=== PATIENT | female | born 1935 | race Hispanic/Latino ===

== ENCOUNTER 2016-10-12 17:40 | Inpatient (IN) | payer MEDICARE ==
[2016-10-12] MEDS ORDERED: TYLENOL ONE (17:56)
[2016-10-12] MEDS ORDERED: TYLENOL PO ONE (18:01)
--- NOTE | 2016-10-12 19:26 | Emergency Department Report ---
Chief Complaint: Fever Stated Complaint: BLOOD TRANSFUSION - HPI History of Present Illness: 81-year-old female past medical history multiple medical problems presents with complaint of fever or chills, sent by PMD for low H&H from office. Patient awake alert and oriented 3 accompanied by son. Slightly pale appearance denies any rectal bleeding or vaginal bleeding or urinary bleeding. Denies any chest pain, only complaining of generalized weakness. Patient states she was recently on antibiotics for bronchitis. - ROS Review of Systems: Recently on antibiotics for bronchitis - Exam Vital Signs: Vital Signs 10/12/16 17:47 Temperature 103 F H Pulse Rate 99 H Respiratory 16 Rate Blood Pressure 108/47 O2 Sat by Pulse 97 Oximetry Physical Exam: Patient is pale appearance, heart S1-S2 lungs clear to auscultation patient slightly tachycardic on exam MSE screening note: Focused history and physical exam performed. Due to findings the following was ordered: Screening Assessment/Plan/Differential Dx: Fever, SIRS, symptomatic anemia 1- This initial assessment/diagnostic orders/clinical plan/ treatment(s) is/are subject to change based on pt's health status, clinical progression and re- assessment by fellow clinical providers in the ED. Further treatment and workup at subsequent clinical provers discretion. Patient/guardians urged not to elope from ED as their condition may be serious if not clinically assessed and managed. 2-sepsis and anemia labs, chest x-ray, EKG shows tachycardia, febrile to 103 will give Tylenol ED Disposition for MSE Condition: Stable
[2016-10-12 19:39] LABS: Basophils % (Auto) 1.1 % (0.0-1.8); Eosinophils % (Auto) 1.5 % (0.0-4.3); Mean Corpuscular HGB Conc 30 % (30-34); Platelet Count 341 K/mm3 (140-440); Red Blood Count 2.41 M/mm3 (3.65-5.03); Red Cell Distribution Width 18.7 % (13.2-15.2); White Blood Count 6.1 K/mm3 (4.5-11.0)
[2016-10-12 19:43] LABS: Mean Corpuscular Hemoglobin 19 pg (28-32); Mean Corpuscular Volume 62 fl (79-97)
[2016-10-12 19:45] LABS: Hemoglobin 4.4 gm/dl (10.1-14.3)
[2016-10-12 19:46] LABS: Hematocrit 14.9 % (30.3-42.9)
[2016-10-12 19:52] LABS: INR 1.06 (0.87-1.13)
[2016-10-12 20:05] LABS: Alanine Aminotransferase 15 units/L (7-56); Albumin 3.2 g/dL (3.9-5); Albumin/Globulin Ratio 1.2 %; Alkaline Phosphatase 77 units/L (35-129); Anion Gap 18 mmol/L; BUN/Creatinine Ratio 21.42; Bilirubin,Total 0.3 mg/dL (0.1-1.2); Blood Urea Nitrogen 15 mg/dL (7-17); Calcium 7.5 mg/dL (8.4-10.2); Carbon Dioxide 22 mmol/L (22-30); Chloride 92.3 mmol/L (98-107); Glucose 115 mg/dL (65-100); Potassium 4.1 mmol/L (3.6-5.0); Sodium 128 mmol/L (137-145); Total Protein 5.8 g/dL (6.3-8.2)
[2016-10-12 20:11] LABS: Bilirubin,Direct < 0.2 mg/dL (0-0.2); Bilirubin,Indirect 0.1 mg/dL
[2016-10-12] MEDS ORDERED: NACL 0.9% 500 ML 500 ML IV ONE (20:54)
--- NOTE | 2016-10-12 21:05 | Emergency Department Report ---
HPI - General Chief Complaint: Fever Time Seen by Provider: 10/12/16 20:53 - HPI HPI: This is a 81-year-old female who presents to the emergency department from home after being sent in by her primary care doctor, Dr. Moraes/Patrice, secondary to low hemoglobin. Patient has been dealing with 2-3 weeks of what they believed to be bronchitis versus pneumonia. Patient is just now starting her second course of antibiotics. She has been dealing with some shortness of breath, cough, wheezing and fevers. Patient has a MAXIMUM TEMPERATURE today of 100.3 Fahrenheit. She denies any history of GI bleeding and has not noticed any bleeding per rectum or any hematuria recently. Patient did have a fall last week secondary to some generalized weakness. No recent travel or sick contacts at home. She has a history of hypertension, [place], high cholesterol. ED Past Medical Hx - Past Medical History Hx Hypertension: Yes Hx Heart Attack/AMI: Yes (STEMI (12/10/15)) Hx GERD: Yes Hx Arthritis: Yes Hx HIV: No - Surgical History Hx Coronary Stent: Yes - Social History Smoking Status: Never Smoker - Medications Home Medications: Home Medications Medication Instructions Recorded Confirmed Last Taken Type Calcium Carbonate/Vitamin D3 1 each PO BID 12/10/15 04/14/16 04/14/16 09:00 History [Calcium 600-Vit D3 400 Caplet] Cetirizine HCl [ZyrTEC] 10 mg PO PRN 12/10/15 04/14/16 04/14/16 22:08 History HYDROcodone/ACETAMINOPHEN 1 tab PO Q4H PRN 12/10/15 04/14/16 04/13/16 09:00 History [Hydrocodon-Acetaminophen 5-325] Levothyroxine [Synthroid] 100 mcg PO QAM 12/10/15 04/14/16 04/14/16 09:00 History Multivitamin Tab W-MINERAL 1 each PO QD 12/10/15 04/14/16 04/14/16 09:00 History [Multiple Vitamin/Mineral (Theragran M)] [place]-3S/Dha/Epa/Fish Oil [Fish 1 each PO DAILY 12/10/15 04/14/16 04/14/16 09: 00 History Oil 1,200 mg Softgel] AtorvaSTATin [Lipitor] 80 mg PO QHS #30 tablet 12/11/15 04/14/1616 09:00 Rx Carvedilol [Coreg] 3.125 mg PO BID #60 tablet 12/11/15 04/14/16 04/14/16 09:00 Rx Clopidogrel [Plavix] 75 mg PO QDAY #30 tablet 12/11/15 04/14/16 04/14/16 Rx Losartan [Cozaar] 25 mg PO QDAY #30 tablet 12/11/15 04/14/16 04/14/16 09:00 Rx Nitroglycerin [Nitrostat] 0.4 mg SL .Q5MIN PRN #100 tablet 12/11/15 04/14/16 09:00 Rx Aspirin [Aspirin BABY CHEW TAB] 81 mg PO QDAY 04/14/16 04/14/16 04/14/16 09:00 History Magnesium Oxide [Magnesium] 500 mg PO DAILY 04/14/16 04/14/16 04/14/16 09:00 History ISOSORBIDE MONOnitrate [Imdur ER] 30 mg PO QDAY #30 tablet 04/15/16 Unknown Rx Nitrofurantoin [place]/M-Cryst 100 mg PO Q12HR #6 capsule 04/15/16 Unknown Rx [Macrobid CAP] ED Review of Systems ROS: Stated complaint: BLOOD TRANSFUSION Other details as noted in HPI Comment: All other systems reviewed and negative Constitutional: fever, weakness Eyes: denies: eye pain, eye discharge, vision change ENT: denies: ear pain, throat pain Respiratory: cough, shortness of breath, wheezing Cardiovascular: denies: chest pain, palpitations Gastrointestinal: denies: abdominal pain, nausea, diarrhea Genitourinary: denies: urgency, dysuria, discharge Musculoskeletal: denies: joint swelling, arthralgia Skin: denies: rash, lesions Neurological: denies: headache, numbness Physical Exam - Physical Exam Vital Signs: Vital Signs 10/12/16 17:47 Temperature 103 F H Pulse Rate 99 H Respiratory 16 Rate Blood Pressure 108/47 O2 Sat by Pulse 97 Oximetry Physical Exam: GENERAL: The patient is well-developed well-nourished. HEENT: Normocephalic. Atraumatic. Extraocular motions are intact. Patient has moist mucous membranes. Pupils equal reactive to light bilaterally. Patient has pelvic and time. NECK: Supple. Trachea is midline. CHEST/LUNGS: Slightly coarse breath sounds at the chest. No tachypnea or accessory muscle use. No cough heard during examination. There is no respiratory distress noted. HEART/CARDIOVASCULAR: Regular. There is no tachycardia. There is no gallop rub or murmur. ABDOMEN: Abdomen is soft, nontender. Patient has normal bowel sounds. There is no abdominal distention. SKIN: Skin is hot but dry. Pale. NEURO: The patient is awake, alert, and oriented. The patient is cooperative. The patient has no focal neurologic deficits. The patient has normal speech. MUSCULOSKELETAL: There is no tenderness or deformity. There is no limitation range of motion. There is no evidence of acute injury. RECTAL: No lesions seen. No gross blood. Negative stool for guaiac ED Course Vital Signs 10/12/16 17:47 Temperature 103 F H Pulse Rate 99 H Respiratory 16 Rate Blood Pressure 108/47 O2 Sat by Pulse 97 Oximetry ED Medical Decision Making - Lab Data Result diagrams: 10/12/16 19:17 10/12/16 19:17 - EKG Data -: EKG Interpreted by Me EKG shows normal: sinus rhythm, axis, intervals, QRS complexes (Low voltage QRS) , ST-T waves Rate: normal - EKG Data When compared to previous EKG there are: previous EKG unavailable Interpretation: normal EKG - Radiology Data Radiology results: image reviewed interpreted by me: Chest x-ray did not show any acute process. Heart is normal shape and size. No effusions. No pneumothorax. No signs of pneumonia seen. - Medical Decision Making 81-year-old female sent in by PCP for low hemoglobin found on labs as they are working up her bronchitis versus pneumonia. Patient does have hemoglobin of 4.4 here. 4 units packed red blood cells ordered for transfusion. No history of GI bleed or significant vaginal bleeding. Negative stool for guaiac on exam and no gross blood seen. Patient does have a fever here of 103 Fahrenheit. No source of infection is seen. Chest x-ray does not show any signs of pneumonia or any other acute process. No urinary tract infection. Some of the patient's symptoms could be secondary to symptomatic anemia. She'll be admitted to hospital for further evaluation and treatment and has been accepted for admission by the hospitalist, Dr. Moya. - Differential Diagnosis symptomatically anemia, bronchitis, pneumonia, GI bleed Critical Care Time: No Critical care attestation.: If time is entered above; I have spent that time in minutes in the direct care of this critically ill patient, excluding procedure time. ED Disposition Clinical Impression: Symptomatic anemia, Bronchitis Disposition: OP ADMITTED IP TO THIS HOSP Is pt being admited?: Yes Does the pt Need Aspirin: No Condition: Stable Time of Disposition: 22:40
--- NOTE | 2016-10-12 21:41 | XRay Report ---
FINAL REPORT EXAM: XR CHEST ROUTINE 2V HISTORY: anemia; SOB TECHNIQUE: PA and lateral chest radiographs PRIORS: Chest radiograph 04/14/2016 FINDINGS: Calcified granuloma is seen in the right upper lobe. There is Port-A-Cath central venous catheter re-identified on the left coursing to the superior vena cava. No focal consolidations are seen in the lungs. No pleural effusion is seen. Heart size is stable. Moderate size hiatal hernia is again noted. IMPRESSION: 1. No definite radiographic evidence of acute cardiopulmonary disease. 2. No focal infiltrate is identified. 3. Hiatal hernia.
--- NOTE | 2016-10-12 21:55 | History and Physical Report ---
History of Present Illness Date of examination: 10/12/16 Date of admission: 10/12/16 Chief complaint: SOB and fatigue History of present illness: This is a 81-year-old female who presents with significant past medical history of coronary artery disease, hypertension, hypothyroidism, osteoporosis and uterine CA status post hysterectomy/radiation last chemotherapy in 2012 who presents to the emergency Department with complaints of fatigue and shortness of breath. Patient has had a recent diagnosis of bronchitis/pneumonia that was being treated as an outpatient by her primary care physician Dr. Ibrahim over the past 2-3 weeks with no significant improvement. Patient reportedly has had 3 visits to the doctor's office with change in antibiotic regimen and follow- up. Patient states that she was called today after blood work revealed severe anemia. Patient was instructed to come to the emergency room. Patient denies any chest pain. No nausea or vomiting. No hematemesis, coffee-ground emesis, hematochezia or melena. Patient reports a history of GERD but no gastric ulcers. Patient reports no recent history of endoscopy. Patient also denies any other source of blood loss such as vaginal bleeding. Patient denies any cough or cold-like symptoms. No fever or chills. Past History Past Medical History: CAD, hypertension, other (osteoporosis, uterine CA) Past Surgical History: No surgical history Social history: no significant social history Family history: no significant family history Medications and Allergies Allergies Allergy/AdvReac Type Severity Reaction Status Date / Time hydrochlorothiazide Allergy Severe Hives Verified 12/10/15 19:21 lisinopril Allergy Severe Hives Verified 12/10/15 19:21 Sulfa (Sulfonamide Allergy Severe TERRIBLE Verified 12/10/15 19:21 Antibiotics) RASH,HIVES ampicillin Allergy Mild RASH Verified 12/10/15 19:21 AROUND MOUTH,SWELLING ciprofloxacin [From Cipro] Allergy Nausea Verified 12/10/15 19:22 ciprofloxacin HCl Allergy Nausea Verified 12/10/15 19:22 [From Cipro] pneumococcal vaccine Allergy Hives Verified 12/10/15 19:22 Home Medications Medication Instructions Recorded Confirmed Last Taken Type Calcium Carbonate/Vitamin D3 1 each PO BID 12/10/15 04/14/16 04/14/16 09:00 History [Calcium 600-Vit D3 400 Caplet] Cetirizine HCl [ZyrTEC] 10 mg PO PRN 12/10/15 04/14/16 04/14/16 22:08 History HYDROcodone/ACETAMINOPHEN 1 tab PO Q4H PRN 12/10/15 04/14/16 04/13/16 09:00 History [Hydrocodon-Acetaminophen 5-325] Levothyroxine [Synthroid] 100 mcg PO QAM 12/10/15 04/14/16 04/14/16 09:00 History Multivitamin Tab W-MINERAL 1 each PO QD 12/10/15 04/14/16 04/14/16 09:00 History [Multiple Vitamin/Mineral (Theragran M)] [place]-3S/Dha/Epa/Fish Oil [Fish 1 each PO DAILY 12/10/15 04/14/16 04/14/16 09: 00 History Oil 1,200 mg Softgel] AtorvaSTATin [Lipitor] 80 mg PO QHS #30 tablet 12/11/15 04/14/16 04/14/16 09:00 Rx Carvedilol [Coreg] 3.125 mg PO BID #60 tablet 12/11/15 04/14/16 04/14/16 09:00 Rx Clopidogrel [Plavix] 75 mg PO QDAY #30 tablet 12/11/15 04/14/16 04/14/16 Rx Losartan [Cozaar] 25 mg PO QDAY #30 tablet 12/11/15 04/14/16 04/14/16 09:00 Rx Nitroglycerin [Nitrostat] 0.4 mg SL .Q5MIN PRN #100 tablet 12/11/15 04/14/16 09:00 Rx Aspirin [Aspirin BABY CHEW TAB] 81 mg PO QDAY 04/14/16 04/14/16 04/14/16 09:00 History Magnesium Oxide [Magnesium] 500 mg PO DAILY 04/14/16 04/14/16 04/14/16 09:00 History ISOSORBIDE MONOnitrate [Imdur ER] 30 mg PO QDAY #30 tablet 04/15/16 Unknown Rx Nitrofurantoin [place]/M-Cryst 100 mg PO Q12HR #6 capsule 04/15/16 Unknown Rx [Macrobid CAP] Review of Systems All systems: negative Exam - Constitutional Vitals: Temp Pulse Resp BP Pulse Ox 98.9 F 91 H 18 113/39 97 10/12/16 21:43 10/12/16 21:43 10/12/16 21:43 10/12/16 21:43 10/12/16 21:43 General appearance: Present: no acute distress, well-nourished - EENT Eyes: Present: PERRL ENT: hearing intact, clear oral mucosa - Neck Neck: Present: supple, normal ROM - Respiratory Respiratory effort: normal Respiratory: bilateral: CTA - Cardiovascular Heart Sounds: Present: S1 & S2. Absent: rub, click - Extremities Extremities: pulses symmetrical, No edema Peripheral Pulses: within normal limits - Abdominal General gastrointestinal: Present: soft, non-tender, non-distended, normal bowel sounds Female genitourinary: Present: normal - Integumentary Integumentary: Present: clear, warm, dry - Musculoskeletal Musculoskeletal: gait normal, strength equal bilaterally - Psychiatric Psychiatric: appropriate mood/affect, intact judgment & insight - Neurologic Neurologic: CNII-XII intact, moves all extremities Results - Labs CBC & Chem 7: 10/12/16 19:17 10/12/16 19:17 Labs: Laboratory Last Values WBC 6.1 K/mm3 (4.5-11.0) 10/12/16 19:17 RBC 2.41 M/mm3 (3.65-5.03) L 10/12/16 19:17 Hgb 4.4 gm/dl (10.1-14.3) L* 10/12/16 19:17 Hct 14.9 % (30.3-42.9) L* 10/12/16 19:17 MCV 62 fl (79-97) L 10/12/16 19: MCH 19 pg (28-32) L 10/12/16 19:17 MCHC 30 % (30-34) 10/12/16 19:17 RDW 18.7 % (13.2-15.2) H 10/12/16 19:17 Plt Count 341 K/mm3 (140-440) 10/12/16 19:17 Lymph % (Auto) 9.2 % (13.4-35.0) L 10/12/16 19:17 [place] % (Auto) 13.0 % (0.0-7.3) H 10/12/16 19:17 Eos % (Auto) 1.5 % (0.0-4.3) 10/12/16 19: Baso % (Auto) 1.1 % (0.0-1.8) 10/12/16 19:17 Lymph # 0.6 K/mm3 (1.2-5.4) L 10/12/16 19:17 [place] # 0.8 K/mm3 (0.0-0.8) 10/12/16 19:17 Eos # 0.1 K/mm3 (0.0-0.4) 10/12/16 19: Baso # 0.1 K/mm3 (0.0-0.1) 10/12/16 19:17 Seg Neutrophils % 75.2 % (40.0-70.0) H 10/12/16 19: Seg Neutrophils # 4.6 K/mm3 (1.8-7.7) 10/12/16 19: PT 13.7 Sec. (12.2-14.9) 10/12/16 19:17 INR 1.06 (0.87-1.13) 10/12/16 19:17 Sodium 128 mmol/L (137-145) L 10/12/16 19:17 Potassium 4.1 mmol/L (3.6-5.0) 10/12/16 19:17 Chloride 92.3 mmol/L (98-107) L 10/12/16 19:17 Carbon Dioxide 22 mmol/L (22-30) 10/12/16 19:17 Anion Gap 18 mmol/L 10/12/16 19:17 BUN 15 mg/dL (7-17) 10/12/16 19:17 Creatinine 0.7 mg/dL (0.7-1.2) 10/12/16 19:17 Estimated GFR > 60 ml/min 10/12/16 19:17 BUN/Creatinine Ratio 21.42 % 10/12/16 19:17 Glucose 115 mg/dL (65-100) H 10/12/16 19:17 Lactic Acid 2.1 mmol/L (0.7-2.0) H* 10/12/16 21:10 Calcium 7.5 mg/dL (8.4-10.2) L 10/12/16 19:17 Total Bilirubin 0.3 mg/dL (0.1-1.2) 10/12/16 19:17 Direct Bilirubin < 0.2 mg/dL (0-0.2) 10/12/16 19: Indirect Bilirubin 0.1 mg/dL 10/12/16 19: AST 24 units/L (5-40) 10/12/16: ALT 15 units/L (7-56) 10/12/16 19: Alkaline Phosphatase 77 units/L (35-129) 10/12/16 19: Troponin T < 0.010 ng/mL (0.00-0.029) 10/12/16: Total Protein 5.8 g/dL (6.3-8.2) L 10/12/16: Albumin 3.2 g/dL (3.9-5) L 10/12/16: Albumin/Globulin Ratio 1.2 % 10/12/16: Blood Type O POSITIVE 10/12/16: Antibody Screen Negative 10/12/16: Crossmatch See Detail 10/12/16: Assessment and Plan Assessment and plan: 1. Severe anemia. Etiology is unknown at this time. Check iron studies, B12, folate, reticulocyte count, LDH and Hemoccult of stool. Consider GI consultation. Patient will receive 4 units packed red blood cells. 2. Acute bronchitis. We will start antibiotics. 3. Hypertension. Resume antihypertensive medications as needed. 4. History of uterine CA. 5. Hypothyroidism. Check TSH. 6. DVT prophylaxis. Given the severe anemia we'll hold on anticoagulation and treat with SCDs.
[2016-10-12] MEDS ORDERED: MILK OF MAGNESIA PO PRN (22:02)
[2016-10-12] MEDS ORDERED: TYLENOL PO PRN (22:02)
[2016-10-12] MEDS ORDERED: ZOFRAN IV PRN (22:02)
[2016-10-12] MEDS ORDERED: DULCOLAX PR PRN (22:02)
[2016-10-12 22:25] LABS: Bilirubin,Urine Negative (Negative); Blood,Urine Negative (Negative); Ketones,Urine Negative (Negative); Leukocyte Esterase,Urine Negative (Negative); Mucus,Urine Few /HPF; Nitrite,Urine Negative (Negative); Protein,Urine <15 mg/dL mg/dL (Negative); Urobilinogen,Urine < 2.0 mg/dL (<2.0)
[2016-10-13] MEDS ORDERED: NITROSTAT SL PRN (00:49)
[2016-10-13] MEDS ORDERED: VITAMIN D3 PO SCH (00:49)
[2016-10-13] MEDS ORDERED: NON-FORMULARY (Cetirizine Hcl [Zyrtec] 10 MG) PO SCH (00:49)
[2016-10-13] MEDS ORDERED: CALCIUM CARBONATE PO SCH (00:49)
[2016-10-13] MEDS: COREG PO SCH ×3 (02:00→23:26)
--- NOTE | 2016-10-13 02:02 | Admit Criteria Form ---
Admission Criteria Documentation: ANEMIA, IRON DEFICIENCY OR UNSPECIFIED Clinical Indications for Inpatient Care (Place 'X' for any and all applicable criteria): Admission is indicated for ANY ONE of the following(1)(2)(3)(4)(5)(6)(7): [X] I. Inpatient admission required rather than observation care (Also use Anemia, Iron Deficiency or Unspecified: Observation Care guideline as appropriate) because of ANY ONE of the following: [] a) Hemodynamic instability that is severe or persistent [] b) Active bleeding that cannot be rapidly controlled [] c) CVS symptoms (i.e., dyspnea, chest pain, heart failure) that are severe or persistent [] d) Neurologic symptoms (i.e., cognitive impairment, recurrent syncope or near syncope) that are severe or persistent [] e) Cardiac arrhythmias of immediate concern [] f) Acute peripheral ischemia (e.g., pulseless, cool, mottled, or cyanotic extremity) [] g) High-risk low platelet count [] h) Acute renal failure [X] i) Ongoing transfusion for blood loss (greater than 2 units) [] j) IV fluid to replace significant ongoing (eg, >24 hours) losses (> 3 L/m2 per day) [] k) Pulmonary artery catheter monitoring [] l) Supplemental oxygen or respiratory treatments for over 24 hours that are performable only in acute inpatient setting [] m) Immediate inpatient surgery [] n) Other condition, treatment or monitoring requiring inpatient admission [] II Active massive hemorrhage [] III. Active hemolysis with rapidly progressive anemia [A](6) Extended stay beyond goal length of stay may be needed for (17)(18) []a) Diagnosed cause of anemia requiring longer hospitalization (eg, active GI bleeding, immune hemolysis requiring electrophoresis, complications of malignancy requiring acute care []b) Continued emergent anemia indicators (23) []c) Transfusion reactions []d) Associated leukopenia or thrombocytopenia needing inpatient care []e) Active comorbidities (eg, renal failure, heart failure) The original [facility] Care Guidelines content created by [facility] Care Guidelines has been revised. The portions of the content which have been revised are identified through the use of italic text or in bold. [facility] Guidelines has neither reviewed nor approved the modified material. All other unmodified content is copyright [facility] Care Guidelines. Please see references footnoted in the original [facility] edition 2016 Admission Criteria Met: Yes
[2016-10-13] MEDS ORDERED: NACL 0.9% 500 ML 500 ML ONE (03:33)
[2016-10-13] MEDS: SYNTHROID PO SCH (05:41)
[2016-10-13] MEDS: IMDUR PO SCH (09:33)
[2016-10-13] MEDS: OYSCO D 500 MG-200 UNIT PO SCH ×2 (09:34→23:26)
[2016-10-13] MEDS: FISH OIL PO SCH (09:34)
[2016-10-13] MEDS: CLARITIN PO SCH (09:35)
[2016-10-13] MEDS: COZAAR PO SCH (09:35)
[2016-10-13] MEDS: MAG-OX PO SCH (09:35)
[2016-10-13] MEDS: THERAGRAN-M Tab PO SCH (09:38)
[2016-10-13] MEDS ORDERED: EPA PO SCH (10:00)
[2016-10-13] MEDS ORDERED: FISH OIL PO SCH (10:00)
[2016-10-13] MEDS ORDERED: DHA PO SCH (10:00)
[2016-10-13] MEDS ORDERED: OMEGA PO SCH (10:00)
[2016-10-13] MEDS ORDERED: MAGNESIUM OXIDE 500 MG PO SCH (10:00)
[2016-10-13] MEDS ORDERED: LASIX IV ONE (11:00)
--- NOTE | 2016-10-13 11:38 | Progress Note ---
Assessment and Plan Assessment and plan: --Severe anemia with heme-positive stools Deceiving blood transfusion closely monitor H&H and transfuse additional PRBC as needed IV Lasix after finishing transfusion GI consultation, discussed with on-call faculty i on call medical assistant --Acute bronchitis/acute exacerbation of COPD Oxygen titrated to O2 sats more than 90%, IV antibiotics, nebulizers, IV steroids Inhalation steroids, we will consider pulmonary evaluation if needed --Hypertension moderate control Continue current antihypertensives and when necessary hydralazine --Hypothyroidism continue Synthroid -- DVT prophylaxis. No pharmacologic anticoagulation in view of anemia managed with SCDs --History of of uterine cancer stable --Full CODE STATUS Closely monitor the patient adjust management as needed Follow GI evaluation and recommendations Plan of care discussed with the patient family member as well as case management History Interval history: Patient seen and evaluated medical records reviewed admitted with severe anemia and heme-positive stool Receiving blood transfusion Patient complains of mild shortness of breath Denies chest pain, no evidence of active bleeding Vital signs reviewed Hospitalist Physical - Constitutional Vitals: Temp Pulse Resp BP Pulse Ox 99 F 77 18 119/57 98 10/13/16 10:48 10/13/16 10:48 10/13/16 10:48 10/13/16 10:48 10/13/16 10:48 General appearance: Present: no acute distress, well-nourished - EENT Eyes: Present: PERRL, EOM intact - Neck Neck: Present: supple, normal ROM - Respiratory Respiratory effort: normal Respiratory: bilateral: diminished, negative: rales, rhonchi, wheezing - Cardiovascular Rhythm: regular Heart Sounds: Present: S1 & S2 - Extremities Extremities: no ischemia, pulses intact, pulses symmetrical Peripheral Pulses: within normal limits - Abdominal General gastrointestinal: soft, non-tender, non-distended, normal bowel sounds - Integumentary Integumentary: Present: clear, warm - Psychiatric Psychiatric: appropriate mood/affect, cooperative - Neurologic Neurologic: CNII-XII intact, moves all extremities Results - Labs CBC & Chem 7: 10/13/16 13:43 10/13/16 13:43 Labs: Laboratory Last Values WBC 6.1 K/mm3 (4.5-11.0) 10/12/16 19:17 RBC 2.41 M/mm3 (3.65-5.03) L 10/12/16 19:17 Hgb 4.4 gm/dl (10.1-14.3) L* 10/12/16 19:17 Hct 14.9 % (30.3-42.9) L* 10/12/16 19: MCV 62 fl (79-97) L 10/12/16 19:17 MCH 19 pg (28-32) L 10/12/16 19:17 MCHC 30 % (30-34) 10/12/16 19:17 RDW 18.7 % (13.2-15.2) H 10/12/16 19:17 Plt Count 341 K/mm3 (140-440) 10/12/16 19:17 Lymph % (Auto) 9.2 % (13.4-35.0) L 10/12/16 19:17 [place] % (Auto) 13.0 % (0.0-7.3) H 10/12/16 19:17 Eos % (Auto) 1.5 % (0.0-4.3) 10/12/16 19:17 Baso % (Auto) 1.1 % (0.0-1.8) 10/12/16 19:17 Lymph # 0.6 K/mm3 (1.2-5.4) L 10/12/16 19: [place] # 0.8 K/mm3 (0.0-0.8) 10/12/16 19: Eos # 0.1 K/mm3 (0.0-0.4) 10/12/16 19: Baso # 0.1 K/mm3 (0.0-0.1) 10/12/16 19: Seg Neutrophils % 75.2 % (40.0-70.0) H 10/12/16 19: Seg Neutrophils # 4.6 K/mm3 (1.8-7.7) 10/12/16 19: PT 13.7 Sec. (12.2-14.9) 10/12/16: INR 1.06 (0.87-1.13) 10/12/16 19:17 Sodium 128 mmol/L (137-145) L 10/12/16 19:17 Potassium 4.1 mmol/L (3.6-5.0) 10/12/16 19: Chloride 92.3 mmol/L (98-107) L 10/12/16 19:17 Carbon Dioxide 22 mmol/L (22-30) 10/12/16 19:17 Anion Gap 18 mmol/L 10/12/16 19:17 BUN 15 mg/dL (7-17) 10/12/16 19:17 Creatinine 0.7 mg/dL (0.7-1.2) 10/12/16 19:17 Estimated GFR > 60 ml/min 10/12/16 19:17 BUN/Creatinine Ratio 21.42 % 10/12/16 19:17 Glucose 115 mg/dL (65-100) H 10/12/16 19:17 Lactic Acid 2.1 mmol/L (0.7-2.0) H* 10/12/16 21:10 Calcium 7.5 mg/dL (8.4-10.2) L 10/12/16 19:17 Total Bilirubin 0.3 mg/dL (0.1-1.2) 10/12/16 19:17 Direct Bilirubin < 0.2 mg/dL (0-0.2) 10/12/16 19:17 Indirect Bilirubin 0.1 mg/dL 10/12/16 19:17 AST 24 units/L (5-40) 10/12/16 19:17 ALT 15 units/L (7-56) 10/12/16 19:17 Alkaline Phosphatase 77 units/L (35-129) 10/12/16 19:17 Troponin T < 0.010 ng/mL (0.00-0.029) 10/12/16 19:17 Total Protein 5.8 g/dL (6.3-8.2) L 10/12/16 19:17 Albumin 3.2 g/dL (3.9-5) L 10/12/16 19:17 Albumin/Globulin Ratio 1.2 % 10/12/16 19:17 Urine Color Yellow (Yellow) 10/12/16 21:40 Urine Turbidity Clear (Clear) 10/12/16 21:40 Urine pH 6.0 (5.0-7.0) 10/12/16 21:40 Ur Specific [place] 1.010 (1.003-1.030) 10/12/16 21:40 Urine Protein <15 mg/dl mg/dL (Negative) 10/12/16 21:40 Urine Glucose (UA) Negative mg/dL (Negative) 10/12/16 21:40 Urine Ketones Negative mg/dL (Negative) 10/12/16 21:40 Urine Blood Negative (Negative) 10/12/16 21:40 Urine Nitrite Negative (Negative) 10/12/16 21:40 Urine Bilirubin Negative (Negative) 10/12/16 21:40 Urine Urobilinogen < 2.0 mg/dL (<2.0) 10/12/16 21:40 Ur Leukocyte Esterase Negative (Negative) 10/12/16 21:40 Urine WBC (Auto) 2.0 /HPF (0.0-6.0) 10/12/16 21:40 Urine RBC (Auto) 3.0 /HPF (0.0-6.0) 10/12/16 21:40 Urine Mucus Few /HPF 10/12/16 21:40 Blood Type O POSITIVE 10/12/16 19:25 Antibody Screen Negative 10/12/16 19:25 Crossmatch See Detail 10/12/16 19:25
[2016-10-13] MEDS ORDERED: PROVENTIL IH PRN ×2 (11:40→11:52)
[2016-10-13] MEDS: DUONEB 0.5 MG-3 MG/3 ML SOLN IH SCH ×3 (13:38→19:16)
[2016-10-13 14:02] LABS: Hematocrit 27.8 % (30.3-42.9); Mean Corpuscular HGB Conc 32 % (30-34); Mean Corpuscular Volume 74 fl (79-97); Platelet Count 278 K/mm3 (140-440); Red Blood Count 3.76 M/mm3 (3.65-5.03); White Blood Count 4.8 K/mm3 (4.5-11.0)
[2016-10-13 14:04] LABS: Mean Corpuscular Hemoglobin 24 pg (28-32); Red Cell Distribution Width 27.3 % (13.2-15.2)
[2016-10-13 14:14] LABS: Anion Gap 17 mmol/L; Blood Urea Nitrogen 14 mg/dL (7-17); Calcium 7.5 mg/dL (8.4-10.2); Carbon Dioxide 26 mmol/L (22-30); Chloride 93.7 mmol/L (98-107); Glucose 134 mg/dL (65-100); Potassium 3.3 mmol/L (3.6-5.0); Sodium 133 mmol/L (137-145)
[2016-10-13 14:59] LABS: Basophils % (Manual) 0 % (0.0-1.8); Blastocytes % (Manual) 0 %
[2016-10-13 15:00] LABS: Anisocytosis 3+; Hypochromasia 1+; Microcytosis 1+; Poikilocytosis 1+
[2016-10-13 15:01] LABS: Diff Status Complete
[2016-10-13] MEDS: PEPCID PO SCH (23:25)
[2016-10-14] MEDS: SYNTHROID PO SCH (05:56)
[2016-10-14 06:13] LABS: Hematocrit 28.7 % (30.3-42.9); Hemoglobin 9.2 gm/dl (10.1-14.3); Mean Corpuscular HGB Conc 32 % (30-34); Mean Corpuscular Volume 74 fl (79-97); Platelet Count 291 K/mm3 (140-440); Red Blood Count 3.87 M/mm3 (3.65-5.03); White Blood Count 4.9 K/mm3 (4.5-11.0)
[2016-10-14 06:14] LABS: Anion Gap 15 mmol/L; Blood Urea Nitrogen 11 mg/dL (7-17); Calcium 8.1 mg/dL (8.4-10.2); Carbon Dioxide 27 mmol/L (22-30); Chloride 97.1 mmol/L (98-107); Glucose 146 mg/dL (65-100); Potassium 4.4 mmol/L (3.6-5.0); Sodium 135 mmol/L (137-145)
[2016-10-14 06:34] LABS: Mean Corpuscular Hemoglobin 24 pg (28-32); Red Cell Distribution Width 27.5 % (13.2-15.2)
[2016-10-14 07:50] LABS: Basophils % (Manual) 0 % (0.0-1.8); Blastocytes % (Manual) 0 %; Eosinophils % (Manual) 0 % (0.0-4.3)
[2016-10-14 07:51] LABS: Anisocytosis 2+; Hypochromasia 1+; Tear Drop Cells Few
[2016-10-14 07:54] LABS: Elliptocytes Few; Ovalocytes 1+; Target Cells Few
[2016-10-14 07:55] LABS: Diff Status Complete; Platelet Estimate Consistent w Auto
[2016-10-14] MEDS: DUONEB 0.5 MG-3 MG/3 ML SOLN IH SCH ×4 (08:05→20:14)
[2016-10-14] MEDS ORDERED: LASIX IV ONE (09:30)
[2016-10-14] MEDS ORDERED: ZITHROMAX PO ONE (11:00)
[2016-10-14] MEDS: COZAAR PO SCH (11:12)
[2016-10-14] MEDS: COREG PO SCH ×2 (11:13→21:56)
[2016-10-14] MEDS: IMDUR PO SCH (11:26)
[2016-10-14] MEDS: MAG-OX PO SCH (13:18)
[2016-10-14] MEDS: PEPCID PO SCH ×2 (13:19→21:56)
[2016-10-14] MEDS: CLARITIN PO SCH (13:22)
[2016-10-14] MEDS: THERAGRAN-M Tab PO SCH (13:22)
[2016-10-14] MEDS: OYSCO D 500 MG-200 UNIT PO SCH ×2 (13:39→21:56)
[2016-10-14] MEDS: FISH OIL PO SCH (13:39)
--- NOTE | 2016-10-14 18:32 | Progress Note ---
Assessment and Plan Assessment and plan: --Acute bronchitis; chest congestion Probably secondary to fluid overload as well as acute exacerbation of COPD Continue oxygen and nebulizers IV steroids IV antibiotics IV Lasix Input-output monitoring --Severe anemia with heme-positive stools Deceiving blood transfusion closely monitor H&H and transfuse additional PRBC as needed IV Lasix after finishing transfusion GI consultation, discussed with on-call supervisor winter --Hypertension moderate control Continue current antihypertensives and when necessary hydralazine --Hypothyroidism continue Synthroid -- DVT prophylaxis. No pharmacologic anticoagulation in view of anemia managed with SCDs --History of of uterine cancer stable --Full CODE STATUS Closely monitor the patient adjust management as needed Follow GI evaluation and recommendations Plan of care discussed with the patient family member as well as case management History Interval history: Patient seen and evaluated medical records reviewed Patient complains of mild shortness of breath and chest congestion Received 4 units of PRBC yesterday probably secondary to fluid overload Also complains of mild cough Hemoglobin levels significantly improved Denies any headache dizziness Denies any chest pain or palpitations Hospitalist Physical - Constitutional Vitals: Temp Pulse Resp BP Pulse Ox 98.4 F 96 H 20 115/54 97 10/14/16 16:00 10/14/16 16:00 10/14/16 16:00 10/14/16 16:00 10/14/16 12:00 General appearance: Present: no acute distress, well-nourished - EENT Eyes: Present: PERRL, EOM intact - Neck Neck: Present: supple, normal ROM - Respiratory Respiratory effort: normal Respiratory: bilateral: diminished, negative: rales, rhonchi, wheezing - Cardiovascular Rhythm: regular Heart Sounds: Present: S1 & S2 - Extremities Extremities: no ischemia, pulses intact, pulses symmetrical Peripheral Pulses: within normal limits - Abdominal General gastrointestinal: soft, non-tender, non-distended, normal bowel sounds - Integumentary Integumentary: Present: clear, warm - Psychiatric Psychiatric: appropriate mood/affect, cooperative - Neurologic Neurologic: CNII-XII intact, moves all extremities Results - Labs CBC & Chem 7: 10/14/16 05:31 10/14/16 05:31 Labs: Laboratory Last Values WBC 4.9 K/mm3 (4.5-11.0) 10/14/16 05:31 RBC 3.87 M/mm3 (3.65-5.03) 10/14/16 05:31 Hgb 9.2 gm/dl (10.1-14.3) L 10/14/16 05:31 Hct 28.7 % (30.3-42.9) L 10/14/16 05:31 MCV 74 fl (79-97) L 10/14/16 05:31 MCH 24 pg (28-32) L 10/14/16 05:31 MCHC 32 % (30-34) 10/14/16 05:31 RDW 27.5 % (13.2-15.2) H 10/14/16 05:31 Plt Count 291 K/mm3 (140-440) 10/14/16 05:31 Lymph % (Auto) 9.2 % (13.4-35.0) L 10/12/16 19:17 [place] % (Auto) [employer] 10/13/16 13:43 Eos % (Auto) 1.5 % (0.0-4.3) 10/12/16 19:17 Baso % (Auto) 1.1 % (0.0-1.8) 10/12/16 19:17 Lymph # 0.6 K/mm3 (1.2-5.4) L 10/12/16 19:17 [place] # 0.8 K/mm3 (0.0-0.8) 10/12/16 19:17 Eos # 0.1 K/mm3 (0.0-0.4) 10/12/16 19:17 Baso # 0.1 K/mm3 (0.0-0.1) 10/12/16 19:17 Add Manual Diff Complete 10/14/16 05:31 Total Counted 100 10/14/16 05:31 Seg Neutrophils % 75.2 % (40.0-70.0) H 10/12/16 19:17 Seg Neuts % (Manual) 92.0 % (40.0-70.0) H 10/14/16 05:31 Band Neutrophils % 0 % 10/14/16 05:31 Lymphocytes % (Manual) 4.0 % (13.4-35.0) L 10/14/16 05:31 Reactive Lymphs % (Man) 0 % 10/14/16 05:31 Monocytes % (Manual) 3.0 % (0.0-7.3) 10/14/16 05:31 Eosinophils % (Manual) 0 % (0.0-4.3) 10/14/16 05:31 Basophils % (Manual) 0 % (0.0-1.8) 10/14/16 05:31 Metamyelocytes % 1.0 % 10/14/16 05:31 Myelocytes % 0 % 10/14/16 05:31 Promyelocytes % 0 % 10/14/16 05:31 Blast Cells % 0 % 10/14/16 05:31 Nucleated RBC % Not Reportable 10/14/16 05:31 Seg Neutrophils # 4.6 K/mm3 (1.8-7.7) 10/12/16 19:17 Seg Neutrophils # Man 4.5 K/mm3 (1.8-7.7) 10/14/16 05:31 Band Neutrophils # 0.0 K/mm3 10/14/16 05:31 Lymphocytes # (Manual) 0.2 K/mm3 (1.2-5.4) L 10/14/16 05:31 Abs React Lymphs (Man) 0.0 K/mm3 10/14/16 05:31 Monocytes # (Manual) 0.1 K/mm3 (0.0-0.8) 10/14/16 05:31 Eosinophils # (Manual) 0.0 K/mm3 (0.0-0.4) 10/14/16 05:31 Basophils # (Manual) 0.0 K/mm3 (0.0-0.1) 10/14/16 05:31 Metamyelocytes # 0.0 K/mm3 10/14/16 05:31 Myelocytes # 0.0 K/mm3 10/14/16 05:31 Promyelocytes # 0.0 K/mm3 10/14/16 05:31 Blast Cells # 0.0 K/mm3 10/14/16 05:31 WBC Morphology Not Reportable 10/14/16 05:31 Hypersegmented Neuts Not Reportable 10/14/16 05:31 Hyposegmented Neuts Not Reportable 10/14/16 05:31 Hypogranular Neuts Not Reportable 10/14/16 05:31 Smudge Cells Not Reportable 10/14/16 05:31 Toxic Granulation Not Reportable 10/14/16 05:31 Toxic Vacuolation Not Reportable 10/14/16 05:31 Dohle Bodies Not Reportable 10/14/16 05:31 Pelger-Huet Anomaly Not Reportable 10/14/16 05:31 J Carlos Rods Not Reportable 10/14/16 05:31 Platelet Estimate Consistent w auto 10/14/16 05:31 Clumped Platelets Not Reportable 10/14/16 05:31 Plt Clumps, EDTA Not Reportable 10/14/16 05:31 Large Platelets Not Reportable 10/14/16 05:31 Giant Platelets Not Reportable 10/14/16 05:31 Platelet Satelliting Not Reportable 10/14/16 05:31 Plt Morphology Comment Not Reportable 10/14/16 05:31 RBC Morphology Not Reportable 10/14/16 05:31 Dimorphic RBCs Not Reportable 10/14/16 05:31 Polychromasia Not Reportable 10/14/16 05:31 Hypochromasia 1+ 10/14/16 05:31 Poikilocytosis Not Reportable 10/14/16 05:31 Anisocytosis 2+ 10/14/16 05:31 Microcytosis Not Reportable 10/14/16 05:31 Macrocytosis Not Reportable 10/14/16 05:31 Spherocytes Not Reportable 10/14/16 05:31 Pappenheimer Bodies Not Reportable 10/14/16 05:31 Sickle Cells Not Reportable 10/14/16 05:31 Target Cells Few 10/14/16 05:31 Tear Drop Cells Few 10/14/16 05:31 Ovalocytes 1+ 10/14/16 05:31 Helmet Cells Not Reportable 10/14/16 05:31 Avila-[place] Bodies Not Reportable 10/14/16 05:31 [place] Rings Not Reportable 10/14/16 05:31 Bj Cells Not Reportable 10/14/16 05:31 Bite Cells Not Reportable 10/14/16 05:31 Crenated Cell Not Reportable 10/14/16 05:31 Elliptocytes Few 10/14/16 05:31 Acanthocytes (Spur) Not Reportable 10/14/16 05:31 Rouleaux Not Reportable 10/14/16 05:31 Hemoglobin C Crystals Not Reportable 10/14/16 05:31 Schistocytes Not Reportable 10/14/16 05:31 Malaria parasites Not Reportable 10/14/16 05:31 Connor Bodies Not Reportable 10/14/16 05:31 Hem Pathologist Commnt No 10/14/16 05:31 PT 13.7 Sec. (12.2-14.9) 10/12/16 19:17 INR 1.06 (0.87-1.13) 10/12/16 19:17 Sodium 135 mmol/L (137-145) L 10/14/16 05:31 Potassium 4.4 mmol/L (3.6-5.0) D 10/14/16 05:31 Chloride 97.1 mmol/L (98-107) L 10/14/16 05:31 Carbon Dioxide 27 mmol/L (22-30) 10/14/16 05:31 Anion Gap 15 mmol/L 10/14/16 05:31 BUN 11 mg/dL (7-17) 10/14/16 05:31 Creatinine 0.5 mg/dL (0.7-1.2) L 10/14/16 05:31 Estimated GFR > 60 ml/min 10/14/16 05:31 BUN/Creatinine Ratio 22.00 % 10/14/16 05:31 Glucose 146 mg/dL (65-100) H 10/14/16 05:31 Lactic Acid 2.1 mmol/L (0.7-2.0) H* 10/12/16 21:10 Calcium 8.1 mg/dL (8.4-10.2) L 10/14/16 05:31 Total Bilirubin 0.3 mg/dL (0.1-1.2) 10/12/16 19:17 Direct Bilirubin < 0.2 mg/dL (0-0.2) 10/12/16 19:17 Indirect Bilirubin 0.1 mg/dL 10/12/16 19:17 AST 24 units/L (5-40) 10/12/16 19:17 ALT 15 units/L (7-56) 10/12/16 19:17 Alkaline Phosphatase 77 units/L (35-129) 10/12/16 19:17 Troponin T < 0.010 ng/mL (0.00-0.029) 10/12/16 19:17 Total Protein 5.8 g/dL (6.3-8.2) L 10/12/16 19:17 Albumin 3.2 g/dL (3.9-5) L 10/12/16 19: Albumin/Globulin Ratio 1.2 % 10/12/16 19:17 Urine Color Yellow (Yellow) 10/12/16 21:40 Urine Turbidity Clear (Clear) 10/12/16 21:40 Urine pH 6.0 (5.0-7.0) 10/12/16 21:40 Ur Specific [place] 1.010 (1.003-1.030) 10/12/16 21:40 Urine Protein <15 mg/dl mg/dL (Negative) 10/12/16 21:40 Urine Glucose (UA) Negative mg/dL (Negative) 10/12/16 21:40 Urine Ketones Negative mg/dL (Negative) 10/12/16 21:40 Urine Blood Negative (Negative) 10/12/16 21:40 Urine Nitrite Negative (Negative) 10/12/16 21:40 Urine Bilirubin Negative (Negative) 10/12/16 21:40 Urine Urobilinogen < 2.0 mg/dL (<2.0) 10/12/16 21:40 Ur Leukocyte Esterase Negative (Negative) 10/12/16 21:40 Urine WBC (Auto) 2.0 /HPF (0.0-6.0) 10/12/16 21:40 Urine RBC (Auto) 3.0 /HPF (0.0-6.0) 10/12/16 21:40 Urine Mucus Few /HPF 10/12/16 21:40 Blood Type O POSITIVE 10/12/16 19:25 Antibody Screen Negative 10/12/16 19:25 Crossmatch See Detail 10/12/16 19:25
[2016-10-14] MEDS: LASIX IV SCH (22:05)
[2016-10-14] MEDS ORDERED: PEPCID PO ONE (23:00)
[2016-10-15 05:51] LABS: Hematocrit 29.3 % (30.3-42.9); Hemoglobin 9.2 gm/dl (10.1-14.3); Mean Corpuscular HGB Conc 32 % (30-34); Mean Corpuscular Volume 74 fl (79-97); Platelet Count 324 K/mm3 (140-440); Red Blood Count 3.94 M/mm3 (3.65-5.03); White Blood Count 12.2 K/mm3 (4.5-11.0)
[2016-10-15 06:03] LABS: Mean Corpuscular Hemoglobin 23 pg (28-32); Red Cell Distribution Width 27.9 % (13.2-15.2)
[2016-10-15 06:08] LABS: BUN/Creatinine Ratio 28.33; Blood Urea Nitrogen 17 mg/dL (7-17); Calcium 8.1 mg/dL (8.4-10.2); Carbon Dioxide 27 mmol/L (22-30); Chloride 93.8 mmol/L (98-107); Glucose 168 mg/dL (65-100); Potassium 3.8 mmol/L (3.6-5.0); Sodium 136 mmol/L (137-145)
[2016-10-15 06:13] LABS: Anion Gap 19 mmol/L
[2016-10-15] MEDS: SYNTHROID PO SCH (06:27)
[2016-10-15 07:44] VITALS: BP 169/71
[2016-10-15 07:44] LABS: Basophils % (Manual) 0 % (0.0-1.8); Blastocytes % (Manual) 0 %; Eosinophils % (Manual) 0 % (0.0-4.3)
[2016-10-15 07:45] LABS: Anisocytosis 2+
[2016-10-15 07:46] LABS: Elliptocytes Few; Hypochromasia 1+; Ovalocytes 1+; Target Cells Few
[2016-10-15 07:47] LABS: Tear Drop Cells Few
[2016-10-15 07:48] LABS: Diff Status Complete; Platelet Estimate Consistent w Auto
--- NOTE | 2016-10-15 08:43 | Gastroenterology Consultation ---
History of Present Illness - Reason for Consult Consult date: 10/12/16 anemia Requesting physician: FROY SEPULVEDA - History of Present Illness Ms Wheeler is a 81 yo female with h/o endometrial cancer who presents with worsening cough/sob and weakness. Pt found to have severe BRANDO on admission. She denies any signs of overt GI bleeding. She has received transfusions with appropriate response in hct. She has a h/o radiation tx, chemo, and surgery for her prior malignancy. She reports having colonoscopy ~3 years ago that was w/o significant findings. Denies NSAIDs, or family h/o GI malignancies. Past History Past Medical History: CAD, hypertension, other (osteoporosis, uterine CA) Past Surgical History: No surgical history Social history: no significant social history Family history: no significant family history Medications and Allergies Allergies Allergy/AdvReac Type Severity Reaction Status Date / Time hydrochlorothiazide Allergy Severe Hives Verified 12/10/15 19:21 lisinopril Allergy Severe Hives Verified 12/10/15 19:21 Sulfa (Sulfonamide Allergy Severe TERRIBLE Verified 12/10/15 19:21 Antibiotics) RASH,HIVES ampicillin Allergy Mild RASH Verified 12/10/15 19:21 AROUND MOUTH,SWELLING ciprofloxacin [From Cipro] Allergy Nausea Verified 12/10/15 19:22 ciprofloxacin HCl Allergy Nausea Verified 12/10/15 19:22 [From Cipro] pneumococcal vaccine Allergy Hives Verified 12/10/15 19:22 Home Medications Medication Instructions Recorded Confirmed Last Taken Type Aspirin 81 mg PO DAILY 10/12/16 10/12/16 Unknown History AtorvaSTATin [Lipitor] 80 mg PO DAILY 10/12/16 10/12/16 Unknown History Calcium Carbonate [Calcium] 1,200 mg PO DAILY 10/12/16 10/12/16 Unknown History Carvedilol [Coreg] 3.125 mg PO BID 10/12/16 10/12/16 Unknown History Cetirizine HCl [ZyrTEC] 10 mg PO DAILY 10/12/16 10/12/16 Unknown History Clopidogrel [Plavix] 75 mg PO QDAY 10/12/16 10/12/16 Unknown History Duloxetine HCl [Cymbalta] 60 mg PO DAILY 10/12/16 10/12/16 Unknown History Levothyroxine [Synthroid] 100 mcg PO QAM 10/12/16 10/12/16 Unknown History Losartan [Cozaar] 25 mg PO QDAY 10/12/16 10/12/16 Unknown History Magnesium 500 mg PO DAILY 10/12/16 10/12/16 Unknown History Oxycodone HCl/Acetaminophen 1 each PO Q6HR PRN 10/12/16 10/12/16 Unknown History [Percocet 10/325 mg] Active Meds: Active Medications Acetaminophen (Tylenol) 650 mg PO Q4H PRN PRN Reason: Pain MILD(1-3)/Fever >100.5/LITTLEJOHN Last Admin: 10/13/16 09:34 Dose: 650 mg Albuterol (Proventil) 2.5 mg IH Q4HRT PRN PRN Reason: Shortness Of Breath Albuterol/Ipratropium (Duoneb 0.5 Mg-3 Mg/3 Ml Soln) 1 ampul IH QIDRT [facility] Last Admin: 10/14/16 20:14 Dose: 1 ampul Atorvastatin Calcium (Lipitor) 80 mg PO QHS [facility] Last Admin: 10/14/16 21:56 Dose: 80 mg Azithromycin (Zithromax) 250 mg PO QDAY [facility] Bisacodyl (Dulcolax) 10 mg MI QDAY PRN PRN Reason: Constipation unrelieved by MOM Calcium/Vitamin D (Oysco D 500 Mg-200 Unit) 1 each PO BID [facility] Last Admin: 10/14/16 21:56 Dose: 1 each Carvedilol (Coreg) 3.125 mg PO BID [facility] Last Admin: 10/14/16 21:56 Dose: 3.125 mg Famotidine (Pepcid) 10 mg PO BID [facility] Last Admin: 10/14/16 21:56 Dose: 10 mg Fish Oil (Fish Oil) 1,000 mg PO QDAY [facility] Last Admin: 10/14/16 13:39 Dose: 1,000 mg Furosemide (Lasix) 40 mg IV QDAY [facility] Last Admin: 10/14/16 22:05 Dose: Not Given Isosorbide Mononitrate (Imdur) 30 mg PO QDAY [facility] Last Admin: 10/14/16 11:26 Dose: 30 mg Levothyroxine Sodium (Synthroid) 100 mcg PO QAM@0600 [facility] Last Admin: 10/15/16 06:27 Dose: 100 mcg Loratadine (Claritin) 10 mg PO DAILY [facility] Last Admin: 10/14/16 13:22 Dose: 10 mg Losartan Potassium (Cozaar) 25 mg PO QDAY [facility] Last Admin: 10/14/16 11:12 Dose: 25 mg Magnesium Hydroxide (Milk Of Magnesia) 30 ml PO Q4H PRN PRN Reason: Constipation Magnesium Oxide (Mag-Ox) 400 mg PO QDAY [facility] Last Admin: 10/14/16 13:18 Dose: 400 mg Methylprednisolone Sodium Succinate (Solu-Medrol) 40 mg IV Q8HR [facility] Last Admin: 10/15/16 06:27 Dose: 40 mg Multivitamins/Minerals (Theragran-M Tab) 1 each PO QDAY [facility] Last Admin: 10/14/16 13:22 Dose: 1 each Nitroglycerin (Nitrostat) 0.4 mg SL .Q5MIN PRN PRN Reason: Chest Pain Review of Systems - Review of Systems All systems: negative Constitutional: weakness, poor appetite Exam - Exam Narrative Exam: Gen: NAD, elderly appearing female Head: nc/at Eyes: anicteric, perrl Mouth: dry, no oral lesions Lungs: coarse bs, mild labored respirations Abd: soft, nd, +bs CV: RRR Ext: no c/c/e Neuro: oriented x 3, grossly normal Pysch: appropriate mood and affect - Constitutional Vital Signs: Temp Pulse Resp BP Pulse Ox 99.0 F 74 16 169/71 94 10/15/16 07:41 10/15/16 07:41 10/15/16 07:41 10/15/16 07:41 10/15/16 07:41 - Labs CBC & Chem 7: 10/15/16 04:51 10/15/16 04:51 Lab Results: Laboratory Results - last 24 hr 10/15/16 10/15/16 04:51 04:51 WBC 12.2 H RBC 3.94 Hgb 9.2 L Hct 29.3 L MCV 74 L MCH 23 L MCHC 32 RDW 27.9 H Plt Count 324 Add Manual Diff Complete Total Counted 100 Seg Neutrophils % [employer] Seg Neuts % (Manual) 73.0 H Band Neutrophils % 18.0 Lymphocytes % (Manual) 7.0 L Reactive Lymphs % (Man) 0 Monocytes % (Manual) 2.0 Eosinophils % (Manual) 0 Basophils % (Manual) 0 Metamyelocytes % 0 Myelocytes % 0 Promyelocytes % 0 Blast Cells % 0 Nucleated RBC % Not Reportable Seg Neutrophils # Man 8.9 H Band Neutrophils # 2.2 Lymphocytes # (Manual) 0.9 L Abs React Lymphs (Man) 0.0 Monocytes # (Manual) 0.2 Eosinophils # (Manual) 0.0 Basophils # (Manual) 0.0 Metamyelocytes # 0.0 Myelocytes # 0.0 Promyelocytes # 0.0 Blast Cells # 0.0 WBC Morphology Not Reportable Hypersegmented Neuts Not Reportable Hyposegmented Neuts Not Reportable Hypogranular Neuts Not Reportable Smudge Cells Not Reportable Toxic Granulation Not Reportable Toxic Vacuolation Not Reportable Dohle Bodies Not Reportable Pelger-Huet Anomaly Not Reportable J Carlos Rods Not Reportable Platelet Estimate Consistent w auto Clumped Platelets Not Reportable Plt Clumps, EDTA Not Reportable Large Platelets Not Reportable Giant Platelets Not Reportable Platelet Satelliting Not Reportable Plt Morphology Comment Not Reportable RBC Morphology Not Reportable Dimorphic RBCs Not Reportable Polychromasia Not Reportable Hypochromasia 1+ Poikilocytosis Not Reportable Anisocytosis 2+ Microcytosis Not Reportable Macrocytosis Not Reportable Spherocytes Not Reportable Pappenheimer Bodies Not Reportable Sickle Cells Not Reportable Target Cells Few Tear Drop Cells Few Ovalocytes 1+ Helmet Cells Not Reportable Avila-[place] Bodies Not Reportable [place] Rings Not Reportable [place] Cells Not Reportable Bite Cells Rare Crenated Cell Not Reportable Elliptocytes Few Acanthocytes (Spur) Not Reportable Rouleaux Not Reportable Hemoglobin C Crystals Not Reportable Schistocytes Not Reportable Malaria parasites Not Reportable Connor Bodies Not Reportable Hem Pathologist Commnt No Sodium 136 L Potassium 3.8 Chloride 93.8 L Carbon Dioxide 27 Anion Gap 19 BUN 17 Creatinine 0.6 L Estimated GFR > 60 BUN/Creatinine Ratio 28.33 Glucose 168 H Calcium 8.1 L Assessment and Plan microcytic anemia - pt without signs of overt GI bleeding. responded appropriately to blood transfusions. check iron studies and start iron replacement therapy. Reports colonoscopy ~3 years. Given respiratory issues, will hold off on egd/colonoscopy until more stable for procedures to evaluate for possible etiology of anemia. Will monitor and plan accordingly (inpatient vs close outpatient work-up)
[2016-10-15] MEDS: DUONEB 0.5 MG-3 MG/3 ML SOLN IH SCH ×2 (09:00→12:34)
--- NOTE | 2016-10-15 09:20 | Discharge Summary ---
Providers - Providers Date of Admission: 10/12/16 22:02 Attending physician: FROY SEPULVEDA 10/13/16 07:19 Consult to Physician [CONS] Routine Consulting Provider: LAMINE NORMAN Reason For Exam: severe anemia/past h/o GI bleeding Place consult to:: Latrice SPENCER Notified:: OFFICE Phone number called:: [phone] Was contact made?: Yes If yes, spoke with:: MARTA Time called:: 10:20 Comment:: ISHMAEL NOTIFIED Primary care physician: ALINA MURRY Hospitalization Reason for admission: worsening shortness of breath and cough Condition: Stable Hospital course: Final diagnosis --Acute bronchitis; chest congestion And try Zithromax and albuterol inhaler tapering dose of steroids And cough medicine --Severe anemia with heme-positive stools Received multiple units of PRBC significant improvement GI advised to follow with him in the office for further evaluation as outpatient --Hypertension moderate control Well-controlled --Hypothyroidism continue Synthroid -- DVT prophylaxis. No pharmacologic anticoagulation in view of anemia managed with SCDs --History of of uterine cancer stable 81-year-old female patient was admitted with worsening shortness of breath chest congestion and cough and acute bronchitis, managed with albuterol IV antibiotics and steroids Patient also has anemia requiring multiple PRBC transfusion and heme-positive stool, evaluated by GI advice to follow with him as outpatient for further evaluation and management Date of discharge patient was comfortable and beta no new episodes of GI bleeding Alert and awake not in acute distress [id number] evaluation and physical examination done by me prior to discharge did not show any new changes as detailed below Discharge home follow up with primary care physician and GI per schedule Patient's condition treatment and discharge plan discussed in detail with the patient family members as well as the medical case manager nurse Disposition: DISCHARGED TO HOME OR SELFCARE Time spent for discharge: 32 min Core Measure Documentation - Palliative Care Palliative Care/ Comfort Measures: Not Applicable - Core Measures Any of the following diagnoses?: none Exam - Constitutional Vitals: Temp Pulse Resp BP Pulse Ox 99.0 F 78 16 169/71 94 10/15/16 07:41 10/15/16 09:00 10/15/16 09:00 10/15/16 07:41 10/15/16 08:00 General appearance: Present: no acute distress, well-nourished - EENT Eyes: Present: PERRL, EOM intact - Neck Neck: Present: supple, normal ROM - Respiratory Respiratory effort: normal Respiratory: bilateral: diminished, rhonchi, negative: rales, wheezing - Cardiovascular Rhythm: regular Heart Sounds: Present: S1 & S2 - Extremities Extremities: no ischemia, pulses intact, pulses symmetrical Peripheral Pulses: within normal limits - Abdominal General gastrointestinal: Present: soft, non-tender, non-distended, normal bowel sounds - Integumentary Integumentary: Present: clear, warm - Musculoskeletal Musculoskeletal: strength equal bilaterally - Psychiatric Psychiatric: appropriate mood/affect, cooperative - Neurologic Neurologic: CNII-XII intact, moves all extremities Plan Activity: no restrictions Diet: low cholesterol, low salt, diabetic Follow up with: PRIMARY CARE, [Referring] - 3-5 Days LAMINE NORMAN MD [Staff Physician] - 7 Days Prescriptions: ALBUTEROL Inhaler [ProAir HFA Inhaler] 2 puff IH QID PRN #1 inhalation PRN Reason: Shortness Of Breath Azithromycin [Zithromax Z-TRISH] 0 mg PO DAILY #1 tab Furosemide [Lasix] 20 mg PO QDAY #10 tablet Prednisone [predniSONE 10 mg (6-Day Pack, 21 Tabs)] 10 mg PO .TAPER #1 tab.ds.pk
[2016-10-15] MEDS: PEPCID PO SCH (09:51)
[2016-10-15] MEDS: COZAAR PO SCH (09:52)
[2016-10-15] MEDS: COREG PO SCH (09:52)
[2016-10-15] MEDS: THERAGRAN-M Tab PO SCH (09:52)
[2016-10-15] MEDS: IMDUR PO SCH (09:53)
[2016-10-15] MEDS: CLARITIN PO SCH (09:53)
[2016-10-15] MEDS: OYSCO D 500 MG-200 UNIT PO SCH (09:54)
[2016-10-15] MEDS: FISH OIL PO SCH (09:54)
[2016-10-15] MEDS: LASIX IV SCH (09:54)
[2016-10-15] MEDS ORDERED: ZITHROMAX PO SCH (10:00)
== END 2016-10-15 14:42 | disposition home or self-care (01) | DRG 812 ==
LOC: ED 17:40 → 3A 22:02
PROVIDERS: ADMIT Hospitalist; ATTEND Internal Medicine
PROC: 30233N1 Transfusion of Nonautologous Red Blood Cells into Peripheral Vein, Percutaneous Approach (ICD-10-PCS; principal; 2016-10-12)
DX: D50.9 Iron deficiency anemia, unspecified (principal); J44.0 Chronic obstructive pulmonary disease with (acute) lower respiratory infection; J44.1 Chronic obstructive pulmonary disease with (acute) exacerbation; J20.9 Acute bronchitis, unspecified; E03.9 Hypothyroidism, unspecified; I10 Essential (primary) hypertension; K21.9 Gastro-esophageal reflux disease without esophagitis; M19.90 Unspecified osteoarthritis, unspecified site; I25.10 Atherosclerotic heart disease of native coronary artery without angina pectoris; M81.0 Age-related osteoporosis without current pathological fracture; E87.70 Fluid overload, unspecified; I25.2 Old myocardial infarction; Z95.5 Presence of coronary angioplasty implant and graft; Z79.02 Long term (current) use of antithrombotics/antiplatelets; Z79.899 Other long term (current) drug therapy; Z79.82 Long term (current) use of aspirin; Z85.42 Personal history of malignant neoplasm of other parts of uterus; Z90.710 Acquired absence of both cervix and uterus; Z92.21 Personal history of antineoplastic chemotherapy; Z92.3 Personal history of irradiation; Z98.890 Other specified postprocedural states; Z88.8 Allergy status to other drugs, medicaments and biological substances; Z88.2 Allergy status to sulfonamides; Z88.1 Allergy status to other antibiotic agents; Z88.7 Allergy status to serum and vaccine
CPT/HCPCS: 36415; 71020; 80048; 80074; 81001; 82140; 82270; 84484; 85007; 85025; 85610; 86850; 86900; 86901; 86920; 87040; 87086; 93005; 93010; 94640; 94760; 96360; A9270-GY; J1940; J2920; J7040; P9016

== ENCOUNTER 2016-11-16 06:38 | Day surgery (SDC) | payer MEDICARE ==
[2016-11-16] MEDS ORDERED: NACL 0.9% 1000 ML 1,000 ML IV SCH (07:00)
[2016-11-16] MEDS ORDERED: WATER FOR IRRIG STERILE IR ONE ×2 (07:10→08:27)
[2016-11-16] MEDS ORDERED: DIPRIVAN 10 MG/ML IV ONE ×2 (07:25)
--- NOTE | 2016-11-16 07:28 | Anesthesia Consultation ---
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
--- NOTE | 2016-11-16 07:31 | Anesthesia Day of Surgery ---
Anesthesia Day of Surgery - Day of Surgery Patient Examined: Yes Patient H&P Reviewed: Yes Patient is NPO: Yes Beta Blockers: Yes (coreg @ AM)
[2016-11-16] MEDS ORDERED: XYLOCAINE MPF 2% ONE (07:43)
--- NOTE | 2016-11-16 08:13 | Post Operative Note ---
Pre-op diagnosis: iron deficiency anemia, hematochezia, dysphagia Post-op diagnosis: other (vidal erosions, large hiatal hernia, radiation proctitis) Findings: EGD: Large hiatal hernia with vidal erosions, otherwise unremarkable EGD Colonoscopy: poor prep throughout colon, proctitis suspected 2/2 radiation, internal hemorrhoids Procedure: EGD and colonoscopy Anesthesia: MAC Surgeon: LAMINE NORMAN Estimated blood loss: none Pathology: none Condition: stable Disposition: same day
--- NOTE | 2016-11-16 08:25 | Post Anesthesia Evaluation ---
- Post Anesthesia Evaluation Patient Participated: Yes Airway Patent: Yes Stable Respiratory Function: Yes Nausea/Vomiting: No Temp > 96.8F: Yes Pain Manageable: Yes Adequeate Hydration: Yes Anesthesia Complications: No Block Receding Appropriately: Not Applicable Patient on Ventilator: No
[2016-11-16 08:52] VITALS: BP 117/66
--- NOTE | 2016-11-16 09:28 | Operative Report ---
PROCEDURE: EGD. PREOPERATIVE DIAGNOSES FOR EGD: Iron deficiency anemia and dysphagia. POSTOPERATIVE DIAGNOSES: Large hiatal hernia with Johnathon erosions, otherwise unremarkable EGD. ANESTHESIA: Monitored anesthesia care. COMPLICATIONS: No immediate complications. Estimated blood loss: non DESCRIPTION OF PROCEDURE: After consent was obtained, the patient was placed in left lateral decubitus position. The standard upper Fujinon scope was advanced with direct vision through the mouth and then advanced to the second portion of duodenum without difficulty. The patient tolerated the procedure well. The views of the mucosa were good. FINDINGS: There was a large hiatal hernia of the esophagus with Johnathon erosions. No high risk bleeding stigmata seen. The stomach and duodenum appeared normal. IMPRESSION: A large hiatal hernia with johnathon erosions (no high risk stigmata seen). RECOMMENDATIONS: Continue PPI before breakfast daily Proceed with colonoscopy PROCEDURE: Colonoscopy. PREOPERATIVE DIAGNOES: Iron deficiency anemia and hematochezia. POSTOPERATIVE DIAGNOSES: Findings suggestive of radiation proctitis, internal hemorrhoids, poor prep throughout the colon. ANESTHESIA: Monitored anesthesia care. Estimated blood loss: none COMPLICATIONS: No immediate complications. PROCEDURE IN DETAIL: After consent was obtained, the patient was placed in left lateral decubitus position. Fujinon colonoscope was advanced to the cecum without difficulty. The patient tolerated the procedure well. The views of the mucosa were fair/poor. The quality of the prep was poor. FINDINGS: There was findings in the rectum suggestive of radiation procitis (multipe tangeilactsia time lesions in the rectum. Given amount of stool in rectum and colon, APC was not attempted due to increased risk of complications. Moderate-sized internal hemorrhoids. Poor prep throughout the colon, but no other significant findings were seen despite limited views. IMPRESSION: 1. Findings suggestive of radiation proctitis. 2. Internal hemorrhoids. 3. Poor prep colon RECOMMENDATIONS: 1. High fiber diet daily. 2. Start mesalamine suppository (Canasa) daily 3. If patient has continued bleeding, can consider flex sig with APC treatment (enema prior prior to procedure if needed) JOB# [id number] ABELINO/NTS MTDD
== END 2016-11-16 06:39 | disposition home or self-care (01) ==
LOC: GIO 06:38
PROVIDERS: ATTEND Internal Medicine Gastroenterology
DX: K25.9 Gastric ulcer, unspecified as acute or chronic, without hemorrhage or perforation (principal); D50.9 Iron deficiency anemia, unspecified; K44.9 Diaphragmatic hernia without obstruction or gangrene; K64.8 Other hemorrhoids; I10 Essential (primary) hypertension; I25.2 Old myocardial infarction; E03.9 Hypothyroidism, unspecified; D64.9 Anemia, unspecified; Z87.01 Personal history of pneumonia (recurrent); Z98.61 Coronary angioplasty status; Z85.42 Personal history of malignant neoplasm of other parts of uterus
CPT/HCPCS: 43235; 45378; J2704; J7030